=== PATIENT | male | born 1990 | race Caucasian/White ===

== ENCOUNTER 2021-08-21 11:20 | Emergency (ER) | payer OTHER, SELFPAY ==
--- NOTE | ~2021-08-21 | XR_ITS ---
EXAMINATION: XR chest 2V DATE: 08/21/2021 11:36 INDICATION: Chest pain TECHNIQUE: PA and lateral views of the chest are obtained. COMPARISON: None available FINDINGS: The lungs are free of acute opacities. There is no pleural effusion or pneumothorax. The ca rdiomediastinal silhouette is normal. The visualized bones and soft tissues are unremarkable. IMPRESSION: 1. No acute cardiopulmonary abnormality. Reviewed, dictated and finalized at location B. [employer]
--- NOTE | 2021-08-21 11:27 | ECG_ITS ---
Measurements Intervals [place] Rate: 71 P: 27 MD: 130 QRS: -10 QRSD: 116 T: 7 QT: 376 QTc: 410 Interpretive Statements SINUS RHYTHM INTRAVENTRICULAR CONDUCTION DELAY DELAYED PRECORDIAL R/S TRANSITION BORDERLINE T WAVE ABNORMALITY- ANTERIOR LEADS BASELINE ARTIFACT- I, II, AVR, AVL, V1-V4 BORDERLINE ECG Electronically Signed On 08-21-2021 11:51:02 [employer] by Poil Norwood D.O.
[2021-08-21 11:44] VITALS: BP 122/94; PULSE 84; RESP 14; TEMP 36.9; O2SAT 99
[2021-08-21] MEDS: ASPIRIN 81 MG CHEWABLE TABLET 324 MG PO (12:00)
[2021-08-21 12:08] LABS: Basophils Absolute Auto 0.1 K/mm3 (0.0-0.1); Basophils Percent Auto 0.6 % (0.2-1.2); Eosinophils Absolute Auto 0.1 K/mm3 (0-0.3); Eosinophils Percent Auto 1.5 % (0-4.4); Hematocrit 41.7 % (42.0-52.0); Hemoglobin 14.8 g/dL (14.0-18.0); Immature Granulocyte Absolute 0.03 K/mm3 (0.00-0.031); Immature Granulocyte Percent A 0.3 % (0-0.5); Lymphocytes Absolute Auto 2.96 K/mm3 (0.9-3.2); Lymphocytes Percent Auto 31.5 % (18.3-44.2); Mean Corpuscular HGB Conc 35.5 g/dl (32-36); Mean Corpuscular Hemoglobin 30.3 pg (26-34); Mean Corpuscular Volume 85.3 fl (80-100); Mean Platelet Volume 9.3 fl (7.4-10.4); Monocytes Absolute Auto 0.7 K/mm3 (0.1-0.6); Monocytes Percent Auto 7.5 % (2.6-8.5); Neutrophils Absolute Auto 5.5 K/mm3 (1.3-6.7); Neutrophils Percent Auto 58.6 % (45.5-73.1); Platelet Count Result 389 k/mm3 (150-375); Red Blood Count 4.89 M/mm3 (4.6-6.20); Red Cell Distribution Width 12.8 % (11.5-14.5); White Blood Count 9.4 K/mm3 (4.5-10.0)
[2021-08-21 12:17] LABS: INR 0.9; Prothrombin Time 12.2 Seconds (11.1-14.7)
[2021-08-21 12:23] LABS: Anion Gap 8 mmol/L (8-16); Blood Urea Nitrogen 13 mg/dL (9-20); Calcium 9.1 mg/dL (8.4-10.2); Carbon Dioxide 25 mmol/L (22-30); Chloride 104 mmol/L (98-107); Estimated CRCL calculation 147 ml/min; Estimated Glomerular Filt Rate > 60; Glucose 97 mg/dL (65-110); Potassium 4.3 mmol/L (3.4-5.0); Sodium 137 mmol/L (137-145)
[2021-08-21 12:35] LABS: Troponin I < 0.012 ng/mL (0.000-0.034)
--- NOTE | 2021-08-21 13:32 | ED.CHESTPAIN ---
HPI - Chest Pain General Chief Complaint: Chest Pain <Rajat Cantor PA-C - Last Filed: 08/21/21 15:42> Stated Complaint: chest pain <Rajat Cantor PA-C - Last Filed: 08/21/21 15:42> Time Seen by Provider: 08/21/21 11:38 <Rajat Cantor PA-C - Last Filed: 08/21/21 15:42> Source: patient <ART Hernández Last Filed: 08/21/21 15:42> Mode of arrival: ambulatory <ART Hernández Last Filed: 08/21/21 15:42> Limitations: no limitations <ART Hernández Last Filed: 08/21/21 15:42> History of Present Illness HPI narrative: Patient is a 31-year-old male with chief complaint of intermittent chest pain that has been occurring for 1 month. Patient reports that he noted a a pain to the right side of his chest which spread to the left side of the and radiating into his left arm approximately 5 AM that was 2-3 out of 10 on the pain scale. Patient reports that he had a EKG, troponin and lab work performed on 08-10-21 after having chest pain. He reports the EKG showed normal sinus rhythm with some indeterminate T wave changes but was otherwise normal. Patient states he then followed up with his primary care August 17 and had a EKG performed and a stress test scheduled for the . Patient denies dizziness, weakness, palpitations, changes in vision or hearing, syncope, shortness of breath at the times of the chest pain. Patient reports that the chest pain does not come about when he is exertional nor does it wake him out of his sleep. Patient reports actually when he is active the pain seems to go away which may be because he is not thinking about it. Patient reports that his discomfort is minimal at this time. Patient does not take any daily medications. He reports that his father had a heart attack at age 58. He denies any prior strokes, heart attacks, hypertension, smoking, cancer, history of PEs or DVTs. <ART Hernández Last Filed: 08/21/21 15:42> Related Data Allergies/Adverse Reactions: Allergies Allergy/AdvReac Type Severity Reaction Status Date / Time No Known Allergies Allergy Verified 08/21/21 11:50 <Rajat Cantor PA-C - Last Filed: 08/21/21 15:42> Review of Systems Review of Systems: CONSTITUTIONAL: Denies fever, chills, or sweats. EYES: Denies visual changes, redness, or discharge. ENT: Denies rhinorrhea, congestion, sore throat, or otalgia. CARDIOVASCULAR: Reports chest pain denies palpitations or edema. RESPIRATORY: Denies cough or dyspnea. GASTROINTESTINAL: Denies abdominal pain, nausea, vomiting, or diarrhea. GENITOURINARY: Denies dysuria or hematuria. SKIN: Denies rash or itching. MUSCULOSKELETAL: Denies back pain, joint pain, or myalgia. NEUROLOGIC: Denies headache, numbness, dizziness, or weakness. PSYCHIATRIC: Denies anxiety or depression. <Rajat Cantor PA-C - Last Filed: 08/21/21 15:42> Exam Narrative: GENERAL: Well-appearing, well-nourished, and in no acute distress. Smiling and talking normally. No sign of discomfort. Non toxic in appearance. HEAD: Normocephalic, atraumatic. EYES: PERRLA and EOMI. ENT: Nares clear, no rhinorrhea or epistaxis. Mucous membranes moist. Oropharynx without tonsillar hypertrophy exudate or other lesions. Bilateral TMs pearly torres nonbulging. NECK: Supple. No adenopathy or masses. CHEST: No tender ness to palpation. Clear to auscultation. No respiratory distress. No wheezes rales or rhonchi HEART: Regular rate and rhythm. No murmur heard. Normal peripheral pulses. EXTREMITIES: Normal range of motion. No edema. SKIN: Warm, dry, no rash. NEURO: No focal deficits. Alert and oriented x3. PSYCH: Normal mood and affect. <Rajat Cantor PA-C - Last Filed: 08/21/21 15:42> Course Vital Signs Vital signs: Vital Signs Temperature 98.4 F 08/21/21 11:44 Pulse Rate 84 08/21/21 11:44 Respiratory Rate 14 08/21/21 11:44 Blood Pressure 122/94 H 08/21/21 11:44 Pulse Oximetry 99 11/0
[2021-08-21 14:14] VITALS: BP 121/86; PULSE 72; RESP 20; O2SAT 98
== END 2021-08-21 14:15 | disposition home or self-care (01) ==
PROVIDERS: Family Medicine; Emergency Provider General Practice
DX: R07.89 Other chest pain (principal)
CPT/HCPCS: 36415; 71046; 80048; 84484; 85025; 85610; 85730; 93005; 99284; A9270